=== PATIENT | male | born 1955 | race Caucasian/White ===

== ENCOUNTER 2019-12-22 04:57 | Emergency (ER) | payer OTHER ==
[~2019-12-22] VITALS: Ht 172.7 cm; Wt 95.3 kg
[2019-12-22 05:01] VITALS: Ht 172.7 cm; Wt 95.3 kg
[2019-12-22 05:57] LABS: CALCIUM 8.7 mg/dL (8.5-10.1); CARBON DIOXIDE 27.7 mmol/L (21-32); CHLORIDE SERUM 102 mmol/L (98-107); CREATININE SERUM 1.1 mg/dL (0.7-1.3); GFR1 > 60 mL/min; GLUCOSE SERUM 153 mg/dL (74-106); POTASSIUM SERUM 4.1 mmol/L (3.5-5.1); SODIUM SERUM 138 mmol/L (136-145)
[2019-12-22 06:02] LABS: ALKALINE PHOSPHATASE 65 U/L (46-116); ALT/SGPT 35 U/L (16-63); AST/SGOT 26 U/L (15-37); BILIRUBIN TOTAL 0.69 mg/dL (0.20-1.00); LIPASE 96 IU/L (73-393); TOTAL PROTEIN, SERUM 7.9 g/dL (6.4-8.2)
[2019-12-22 06:03] LABS: BASOPHIL % 0.3 % (0-2); PLATELET COUNT 256 x10^3mcL (130-400); RED CELL DISTRIBUTION WIDTH 13.8 % (11.5-14.5)
[2019-12-22 06:56] LABS: microscopic required? NO
[2019-12-22 07:45] LABS: urine erythrocyte NEGATIVE (NEGATIVE)
[2019-12-22 09:03] VITALS: BP 112/67
== END 2019-12-22 09:03 | disposition home or self-care (01) ==
LOC: ED 04:57
PROVIDERS: Emergency Medicine
DX: K80.80 Other cholelithiasis without obstruction (principal); J98.4 Other disorders of lung; K42.9 Umbilical hernia without obstruction or gangrene
CPT/HCPCS: J2405; J3010; J7030; Q0092